=== PATIENT | male | born 1960 | race Caucasian/White ===

== ENCOUNTER 2017-01-22 16:17 | Emergency (ER) | payer SELFPAY ==
[~2017-01-22] VITALS: Ht 182.9 cm; Wt 127.0 kg
[2017-01-22 16:43] VITALS: BP 146/90
== END 2017-01-23 00:15 | disposition left against medical advice (07) ==
LOC: ER 16:17
DX: R07.9 Chest pain, unspecified (principal); M79.602 Pain in left arm; Z53.21 Procedure and treatment not carried out due to patient leaving prior to being seen by health care provider
CPT/HCPCS: 93005

== ENCOUNTER 2017-08-06 22:41 | Emergency (ER) | payer MEDICAID ==
[~2017-08-06] VITALS: Ht 182.9 cm; Wt 127.0 kg
[2017-08-07] MEDS ORDERED: MORPHINE SULF INJ 2 MG/ML SYRINGE 1ML IV ONE (02:00)
[2017-08-07] MEDS ORDERED: ONDANSETRON HCL 4 MG/2 ML VIAL IV ONE (02:00)
[2017-08-07] MEDS ORDERED: SODIUM CHLORIDE 0.9% 1,000 ML IV ONE (02:00)
[2017-08-07 02:11] LABS: Basophils # (auto) 0.1 uL; Basophils % (auto) 0.5 % (0.0-2.0); Eosinophils # (auto) 0.1 uL; Eosinophils % (auto) 0.9 % (0.0-7.0); Hematocrit 48.1 % (41.0-53.0); Hemoglobin 15.6 g/dL (13.5-17.5); Lymphocytes # (auto) 1.5 uL; Lymphocytes % (auto) 10.8 % (10.0-50.0); Mean Corpuscular Hemoglobin 29.2 pg (28.0-32.0); Mean Corpuscular Hgb Conc. 32.4 g/dL (32.0-36.0); Mean Corpuscular Volume 90.2 fL (80.0-100.0); Monocytes # (auto) 0.7 uL; Monocytes % (auto) 4.9 % (0.0-12.0); Neutrophils # (auto) 11.6 uL; Neutrophils % (auto) 82.9 % (37.0-80.0); Nucleated Red Blood Cells % 0.1 %; Platelet Count (auto) 249 10^3/uL (140-450); Red Cell Distribution Width 13.8 % (11.8-14.3)
[2017-08-07] MEDS ORDERED: cefTRIAXone 1GM/50ML D5W 50 ML IV ONE (02:30)
[2017-08-07 02:34] LABS: Albumin 3.7 g/dL (3.4-5.0); BUN/Creatinine Ratio 13.2; Calcium 9.1 mg/dL (8.5-10.1); Potassium 4.9 mmol/L (3.5-5.1)
[2017-08-07 02:37] LABS: Bilirubin, Total 0.8 mg/dL (0.2-1.0)
[2017-08-07 03:50] VITALS: BP 134/76
== END 2017-08-07 06:33 | disposition left against medical advice (07) ==
LOC: ER 22:55
DX: S02.30XA Fracture of orbital floor, unspecified side, initial encounter for closed fracture (principal); S05.11XA Contusion of eyeball and orbital tissues, right eye, initial encounter; S02.40DA Maxillary fracture, left side, initial encounter for closed fracture; S02.40FA Zygomatic fracture, left side, initial encounter for closed fracture; H05.232 Hemorrhage of left orbit; I10 Essential (primary) hypertension; Y08.89XA Assault by other specified means, initial encounter; Y93.89 Activity, other specified; Y99.8 Other external cause status; Y92.89 Other specified places as the place of occurrence of the external cause
CPT/HCPCS: 36415; 70450; 70486; 72125; 80053; 85025; 96365; 96375; 99285; J0696; J2270; J2405; J7030

== ENCOUNTER 2019-01-13 12:10 | Inpatient (IN) | payer MEDICAID ==
[~2019-01-13] VITALS: Ht 210.8 cm; Wt 106.6 kg
[2019-01-13 14:10] LABS: Basophils # (auto) 0.2 uL; Basophils % (auto) 3.2 % (0.0-2.0); Eosinophils # (auto) 0.6 uL; Eosinophils % (auto) 8.5 % (0.0-7.0); Hematocrit 46.9 % (41.0-53.0); Hemoglobin 15.6 g/dL (13.5-17.5); Lymphocytes # (auto) 1.8 uL; Lymphocytes % (auto) 24.1 % (10.0-50.0); Mean Corpuscular Hemoglobin 29.9 pg (28.0-32.0); Mean Corpuscular Hgb Conc. 33.4 g/dL (32.0-36.0); Mean Corpuscular Volume 89.5 fL (80.0-100.0); Monocytes # (auto) 0.5 uL; Monocytes % (auto) 7.1 % (0.0-12.0); Neutrophils # (auto) 4.2 uL; Neutrophils % (auto) 57.1 % (37.0-80.0); Nucleated Red Blood Cells % 0.1 %; Platelet Count (auto) 223 10^3/uL (140-450); Red Blood Cells 5.24 10^6/uL (4.5-5.90); White Blood Cell 7.3 10^3/uL (4.4-10.8)
[2019-01-13 14:28] LABS: Albumin 3.2 g/dL (3.4-5.0); Anion Gap 3 (5-15); Blood Urea Nitrogen 16 mg/dL (7-18); Calcium 8.4 mg/dL (8.5-10.1); Carbon Dioxide 25 mmol/L (21-32); Chloride 111 mmol/L (98-107); Glucose 105 mg/dL (74-106); Magnesium 2.3 mg/dL (1.6-2.6); Potassium 4.1 mmol/L (3.5-5.1); Sodium 139 mmol/L (136-145)
[2019-01-13 14:35] LABS: Alanine Aminotransferase 33 U/L (16-61); Alkaline Phosphatase 87 U/L (45-117); Aspartate Aminotransferase 18 U/L (15-37); BUN/Creatinine Ratio 20.8; Bilirubin, Total 0.5 mg/dL (0.2-1.0); GFR African American 133 mL/min; GFR Non-African American 110 mL/min
[2019-01-13 16:54] LABS: Alcohol, Urine < 3.0 mg/dL (0-5); Amphetamine Screen, Urine POSITIVE (NEGATIVE); Barbiturate Scree,Urine NEGATIVE (NEGATIVE); Benzodiazephine Screen, Urine NEGATIVE (NEGATIVE); Cannabinoid Screen, Urine NEGATIVE (NEGATIVE); Cocaine Screen, Urine NEGATIVE (NEGATIVE); Opiate Scree,Urine NEGATIVE (NEGATIVE); Phencyclidine Screen, Urine NEGATIVE (NEGATIVE)
[2019-01-13 17:07] LABS: Urine Bacteria NONE SEEN /hpf (None Seen); Urine Blood Negative /uL (Negative); Urine Specific Gravity 1.017 (1.001-1.035); Urine WBC 1 /hpf (0 - 3)
[2019-01-13 20:01] LABS: INR 0.92 (0.9-1.15); Partial Thromboplastin Time 27.3 sec (23.78-33.04); Prothrombin Time 9.9 sec (9.27-12.13)
[2019-01-13] MEDS ORDERED: IOHEXOL 350 MG/ML 100ML IJ ONE (20:22)
[2019-01-13] MEDS ORDERED: TEMAZEPAM 15 MG CAP PO PRN (20:30)
[2019-01-13] MEDS ORDERED: ATORVASTATIN 20 MG TAB PO ONE (20:30)
[2019-01-13] MEDS ORDERED: ACETAMINOPHEN 325 MG TAB PO PRN (20:30)
[2019-01-13] MEDS ORDERED: ONDANSETRON HCL 4 MG/2 ML VIAL IV PRN (20:30)
[2019-01-13] MEDS ORDERED: MORPHINE SULF INJ 2 MG/ML SYRINGE 1ML IV PRN (20:30)
[2019-01-13] MEDS ORDERED: NITROGLYCERIN 0.4 MG SL TAB SL PRN (20:30)
[2019-01-13] MEDS: FAMOTIDINE 20 MG TAB PO SCH (21:36)
[2019-01-13] MEDS ORDERED: LISI10TA6 PO (21:57)
[2019-01-13 22:00] VITALS: BP 122/74
[2019-01-14 05:00] VITALS: BP 130/81
[2019-01-14 06:42] LABS: BUN/Creatinine Ratio 18.3; Calcium 8.4 mg/dL (8.5-10.1); Potassium 4.9 mmol/L (3.5-5.1)
--- NOTE | 2019-01-14 07:30 | NUR ---
OPENING SHIFT PATIENT IS AWAKE, ALERT, AND ORIENTED X4. NO S/S OF DISTRESS, SOB, OR PAIN. RESPIRATIONS EVEN AND UNLABORED. BED IS IN LOWEST POSITION, SIDE RAILS UP X2, AND CALL LIGHT WITHIN REACH. DISCUSSED POC WITH PATIENT, PATIENT VERBALIZED UNDERSTANDING. WILL CONTINUE TO MONITOR Q1 HOUR AND PRN.
[2019-01-14 09:00] VITALS: BP 127/65
[2019-01-14] MEDS ORDERED: ASPirin 81 mg TAB PO SCH (10:00)
[2019-01-14] MEDS: FAMOTIDINE 20 MG TAB PO SCH (10:41)
--- NOTE | 2019-01-14 12:00 | NUR ---
DR. TRINI De La Cruz AT BEDSIDE DISCUSSING POC WITH PATIENT. PATIENT VERBALIZED UNDERSTANDING
[2019-01-14 13:00] VITALS: BP 117/81
--- NOTE | 2019-01-14 13:10 | NUR ---
DR JEET Berry. AT BEDSIDE DISCUSSING POC WITH PATIENT. PATIENT VERBALIZED UNDERSTANDING
[2019-01-14] MEDS ORDERED: FAM20T PO (13:17)
[2019-01-14] MEDS ORDERED: ASPI81CH43 PO (13:17)
--- NOTE | 2019-01-14 13:21 | NUR ---
ATTEMPT TO CONTACT SISTER PATIENT IS TO BE D/C'D TELEPHONE NUMBER FOR TRANSPORTATION ([facility]) IS NOT AN ACTIVE NUMBER
--- NOTE | 2019-01-14 14:30 | NUR ---
NEW NUMBER CHRISTOPHER STAN CONTACTED THE OLD NUMBER IN CHART FOR FAMILY MEMBER LEFT A MESSAGE ON VOICEMAIL FOR FAMILY TO CALL BACK Addendum: 01/14/19 at 1433 by Page Deleon RN [id number] IS CORRECT NUMBER
--- NOTE | 2019-01-14 14:58 | NUR ---
DISCHARGE/ WAITING FOR TRANSPORTATION PATIENT IS DISCHARGED. PAPERWORK SIGNED. AWAITING SISTER TO HOUSEKEEPER HEAD PATIENT. CONTACTED SISTER. SISTER STATES SHE GETS OFF WORK AT 1630, AND WILL BE HERE BY 1700.
[2019-01-14 16:34] VITALS: BP 124/74
--- NOTE | 2019-01-14 17:04 | NUR ---
DISCHARGE Discharge instructions given as ordered. Encourage to follow up with PCP as instructed. All questions and concerns addressed. Patient verbalized understanding. IV removed with catheter intact, pressure dressing applied. Telemetry unit returned to [facility]. Patient taken to vehicle via wheelchair with all personal belongings, accompanied by staff and family member. No distress noted at time of departure.
[2019-01-14] MEDS ORDERED: ATORVASTATIN 20 MG TAB PO SCH (22:00)
== END 2019-01-14 16:33 | disposition home or self-care (01) | DRG 812 ==
LOC: ER 12:10 → EDBD 12:10 → TELE-WESTW 20:25
PROVIDERS: ADMIT Nurse Practitioner; ATTEND Internal Medicine
DX: T43.621A Poisoning by amphetamines, accidental (unintentional), initial encounter (principal); B19.20 Unspecified viral hepatitis C without hepatic coma; F15.10 Other stimulant abuse, uncomplicated; R79.1 Abnormal coagulation profile; F19.10 Other psychoactive substance abuse, uncomplicated; I10 Essential (primary) hypertension; Z59.0 Homelessness; Z91.14 Patient's other noncompliance with medication regimen; Z91.19 Patient's noncompliance with other medical treatment and regimen; Z86.19 Personal history of other infectious and parasitic diseases; Y92.89 Other specified places as the place of occurrence of the external cause
CPT/HCPCS: 36415; 71046; 71275; 80048; 80053; 80307; 81001; 83735; 83880; 84484; 85025; 85379; 85610; 85730; 93005; 93306; 94761; G0378

== ENCOUNTER 2019-02-03 22:49 | Emergency (ER) | payer MEDICAID ==
[~2019-02-03] VITALS: Ht 182.9 cm; Wt 106.6 kg
[~2019-02-03 22:49] MED LIST: ASPI81CH43 PO; FAM20T PO; LISI10TA6 PO
[2019-02-04 00:02] VITALS: BP 154/96
[2019-02-04] MEDS: ACETAMINOPHEN/CODEINE#3 (300/30mg) TAB PO ONE (00:50)
[2019-02-04] MEDS: cefTRIAXone SOD 1,000 MG VL IM ONE (00:50)
[2019-02-04] MEDS: LIDOCAINE W/ EPINEPHRINE 2% INJ 20ML VIAL IJ ONE (00:51)
== END 2019-02-04 01:03 | disposition home or self-care (01) ==
LOC: ER 22:53
DX: S51.812A Laceration without foreign body of left forearm, initial encounter (principal); I10 Essential (primary) hypertension; F11.10 Opioid abuse, uncomplicated; F15.10 Other stimulant abuse, uncomplicated; W23.0XXA Caught, crushed, jammed, or pinched between moving objects, initial encounter; Y93.89 Activity, other specified; Y92.89 Other specified places as the place of occurrence of the external cause; Y99.8 Other external cause status
CPT/HCPCS: 12002; 96372; 99283; J0696

== ENCOUNTER 2019-06-01 08:55 | Emergency (ER) | payer MEDICAID ==
[~2019-06-01] VITALS: Ht 182.9 cm; Wt 127.0 kg
[2019-06-01 09:38] LABS: Basophils # (auto) 0.1 uL; Basophils % (auto) 1.3 % (0.0-2.0); Eosinophils # (auto) 0.5 uL; Eosinophils % (auto) 7.7 % (0.0-7.0); Hematocrit 50.3 % (41.0-53.0); Hemoglobin 16.9 g/dL (13.5-17.5); Lymphocytes # (auto) 1.7 uL; Lymphocytes % (auto) 25.9 % (10.0-50.0); Mean Corpuscular Hemoglobin 29.9 pg (28.0-32.0); Mean Corpuscular Hgb Conc. 33.6 g/dL (32.0-36.0); Mean Corpuscular Volume 88.9 fL (80.0-100.0); Monocytes # (auto) 0.5 uL; Monocytes % (auto) 8.4 % (0.0-12.0); Neutrophils # (auto) 3.7 uL; Neutrophils % (auto) 56.7 % (37.0-80.0); Nucleated Red Blood Cells % 0.1 %; Platelet Count (auto) 195 10^3/uL (140-450); Red Blood Cells 5.66 10^6/uL (4.5-5.90); Red Cell Distribution Width 13.4 % (11.8-14.3); White Blood Cell 6.5 10^3/uL (4.4-10.8)
[2019-06-01] MEDS ORDERED: SERT-274 PO (09:40)
[2019-06-01] MEDS ORDERED: HYDR50TA69 PO (09:40)
[2019-06-01] MEDS ORDERED: RISP1TAB63 PO (09:40)
[2019-06-01] MEDS ORDERED: MELA3TAB27 PO (09:40)
[2019-06-01] MEDS ORDERED: GABA300C10 PO (09:40)
[2019-06-01] MEDS ORDERED: RIS1T PO (09:40)
[2019-06-01] MEDS ORDERED: HCTZ25T PO (09:40)
[2019-06-01] MEDS ORDERED: MIRT30TA PO (09:40)
[2019-06-01] MEDS ORDERED: TAMS0.4C36 PO (09:40)
[2019-06-01 09:58] LABS: Alcohol, Urine < 3.0 mg/dL (0-5); Amphetamine Screen, Urine NEGATIVE (NEGATIVE); Barbiturate Scree,Urine NEGATIVE (NEGATIVE); Benzodiazephine Screen, Urine NEGATIVE (NEGATIVE); Cannabinoid Screen, Urine NEGATIVE (NEGATIVE); Cocaine Screen, Urine NEGATIVE (NEGATIVE); Opiate Scree,Urine NEGATIVE (NEGATIVE); Phencyclidine Screen, Urine NEGATIVE (NEGATIVE)
[2019-06-01 10:09] LABS: Alanine Aminotransferase 36 U/L (16-61); Albumin 3.8 g/dL (3.4-5.0); Anion Gap 7 (5-15); Aspartate Aminotransferase 19 U/L (15-37); BUN/Creatinine Ratio 20.7; Blood Alcohol < 3.0 mg/dL (0-5); Blood Urea Nitrogen 18 mg/dL (7-18); Calcium 9.1 mg/dL (8.5-10.1); Carbon Dioxide 24 mmol/L (21-32); Chloride 112 mmol/L (98-107); GFR African American 116 mL/min; GFR Non-African American 95 mL/min; Glucose 92 mg/dL (74-106); Potassium 4.1 mmol/L (3.5-5.1); Sodium 143 mmol/L (136-145)
[2019-06-01 10:12] LABS: Alkaline Phosphatase 58 U/L (45-117); Total Protein 7.9 g/dL (6.4-8.2)
[2019-06-01 10:45] LABS: Urine Bacteria NONE SEEN /hpf (None Seen); Urine Blood Negative /uL (Negative); Urine Specific Gravity 1.022 (1.001-1.035); Urine WBC 1 /hpf (0 - 3)
[2019-06-01] MEDS ORDERED: hydrOXYzine 25 MG TAB or CAP PO PRN (18:00)
[2019-06-01] MEDS: risperiDONE 1 MG TAB PO SCH ×2 (18:25→21:59)
[2019-06-01] MEDS: MIRTAZAPINE 30 MG TAB PO SCH (21:59)
[2019-06-02] MEDS: risperiDONE 1 MG TAB PO SCH ×2 (10:38→23:07)
--- NOTE | 2019-06-02 18:46 | NUR ---
S/W pablo from ER, states that he is sending out packet. Stated to Pablo that call center is here for them if they need help in finding placement.
[2019-06-02] MEDS: MIRTAZAPINE 30 MG TAB PO SCH (23:07)
--- NOTE | 2019-06-03 10:18 | NUR ---
[facility] s/w Nicol, packet faxed for review [facility] s/w Robbi no beds [facility] s/w Leatha no beds [facility] s/w Sharad no beds [facility] s/s Gabe, not able to accept due to mile radius
[2019-06-03] MEDS: risperiDONE 1 MG TAB PO SCH (10:40)
[2019-06-03 14:56] VITALS: BP 117/78
== END 2019-06-03 15:22 ==
LOC: EDUNIT# 08:55 → EDBD 08:55 → ER 08:55
DX: R45.851 Suicidal ideations (principal); F31.9 Bipolar disorder, unspecified; F20.9 Schizophrenia, unspecified; F41.9 Anxiety disorder, unspecified; I10 Essential (primary) hypertension; F15.10 Other stimulant abuse, uncomplicated
CPT/HCPCS: 36415; 80053; 80307; 80320; 81001; 85025

== ENCOUNTER 2019-06-26 18:58 | Emergency (ER) | payer MEDICAID ==
[~2019-06-26] VITALS: Ht 177.8 cm; Wt 129.3 kg
[~2019-06-26 18:58] MED LIST changes: +GABA300C10 PO; +HCTZ25T PO; +HYDR50TA69 PO; +MELA3TAB27 PO; +MIRT30TA PO; +RIS1T PO; +RISP1TAB63 PO; +SERT-274 PO; +TAMS0.4C36 PO
[2019-06-26] MEDS ORDERED: HYDROcodone-ACET 10/325MG TAB PO ONE (23:15)
[2019-06-26 23:19] VITALS: BP 151/89
== END 2019-06-26 23:30 | disposition home or self-care (01) ==
LOC: EDBD 18:58 → ER 19:04
DX: S00.83XA Contusion of other part of head, initial encounter (principal); S05.12XA Contusion of eyeball and orbital tissues, left eye, initial encounter; I10 Essential (primary) hypertension; Z79.82 Long term (current) use of aspirin; Z79.899 Other long term (current) drug therapy; Y04.2XXA Assault by strike against or bumped into by another person, initial encounter; Y93.89 Activity, other specified; Y92.89 Other specified places as the place of occurrence of the external cause; Y99.8 Other external cause status
CPT/HCPCS: 70450; 70486; 72125